=== PATIENT | female | born 1970 | race Caucasian/White ===

== ENCOUNTER 2017-04-20 21:41 | Emergency (ER) | payer BC ==
[~2017-04-20] VITALS: Ht 172.7 cm; Wt 73.0 kg
[2017-04-20 22:12] VITALS: BP 150/91; Ht 172.7 cm; Wt 73.0 kg
== END 2017-04-20 23:35 | disposition left against medical advice (07) ==
LOC: ED 21:41
DX: Z53.21 Procedure and treatment not carried out due to patient leaving prior to being seen by health care provider (principal)